=== PATIENT | female | born 1995 | race Hispanic/Latino ===

== ENCOUNTER 2019-09-08 18:01 | Emergency (ER) | payer MEDICAID ==
[2019-09-08 19:36] VITALS: BP 124/64
--- NOTE | 2019-09-08 19:37 | Event Note ---
ED Screening Note Date of service: 09/08/19 Time: 19:35 ED Screening Note: Pt complains of vaginal bleeding x yesterday 7 weeks denies urinary symptoms mild cramping abdominal pain +back pain This initial assessment/diagnostic orders/clinical plan/treatment(s) is/are subject to change based on patients health status, clinical progression and re- assessment by fellow clinical providers in the ED. Further treatment and workup at subsequent clinical providers discretion. Patient/guardian urged not to elope from the ED as their condition may be serious if not clinically assessed and managed. Initial orders include: US labs
[2019-09-08 20:14] LABS: Hematocrit 39.6 % (30.3-42.9); Mean Corpuscular HGB Conc 33 % (30-34); Mean Corpuscular Volume 89 fl (79-97); Platelet Count 234 K/mm3 (140-440); Red Blood Count 4.43 M/mm3 (3.65-5.03); Red Cell Distribution Width 13.5 % (13.2-15.2)
[2019-09-08 20:25] LABS: BUN/Creatinine Ratio 8; Blood Urea Nitrogen 4 mg/dL (7-17); Calcium 9.3 mg/dL (8.4-10.2); Hemolysis Index 5
[2019-09-08 20:25] LABS: Bacteria,Urine 1+ /HPF (Negative); Bilirubin,Urine NEG (Negative); Blood,Urine MOD (Negative); Color,Urine Yellow (Yellow); Mucus,Urine FEW /HPF; Protein,Urine <15 mg/dL mg/dL (Negative); Urobilinogen,Urine < 2.0 mg/dL (<2.0)
--- NOTE | 2019-09-09 03:03 | Emergency Department Report ---
ED Female HPI - General Chief complaint: Vaginal Bleeding Stated complaint: 7WKS /BLEEDING Time Seen by Provider: 09/08/19 19:35 Source: patient Mode of arrival: Ambulatory Limitations: No Limitations - History of Present Illness Initial comments: presents to ER with vaginal bleeding, 7 weeks ga, mild abd cramping, mild n/v. no fever, chills or night sweats. Complaint: vaginal bleeding -: days(s) (2) - Related Data Allergies Allergy/AdvReac Type Severity Reaction Status Date / Time No Known Allergies Allergy Unverified 09/08/19 18:06 ED Review of Systems ROS: Stated complaint: 7WKS /BLEEDING Other details as noted in HPI Comment: All other systems reviewed and negative Gastrointestinal: abdominal pain, nausea, vomiting Genitourinary: other (vag bleeding) ED Past Medical Hx - Past Medical History Previous Medical History?: No - Surgical History Past Surgical History?: No - Social History Smoking Status: Current Every Day Smoker ED Physical Exam - General Limitations: No Limitations General appearance: alert, in no apparent distress - Head Head exam: Present: atraumatic, normocephalic - Eye Eye exam: Present: normal appearance, PERRL, EOMI Pupils: Present: normal accommodation - ENT ENT exam: Present: normal exam - Neck Neck exam: Present: normal inspection - Respiratory Respiratory exam: Present: normal lung sounds bilaterally - Cardiovascular Cardiovascular Exam: Present: regular rate, normal rhythm - GI/Abdominal GI/Abdominal exam: Present: soft, normal bowel sounds - Speculum exam: Present: vaginal bleeding (mild) - Extremities Exam Extremities exam: Present: normal inspection - Back Exam Back exam: Present: normal inspection ED Course Vital Signs 09/08/19 19:33 Temperature 98.7 F Pulse Rate 87 Respiratory 17 Rate Blood Pressure 124/64 O2 Sat by Pulse 100 Oximetry ED Medical Decision Making - Lab Data Result diagrams: 09/08/19 19:51 09/08/19 19:51 Critical care attestation.: If time is entered above; I have spent that time in minutes in the direct care of this critically ill patient, excluding procedure time. ED Disposition Clinical Impression: Bleeding in early Disposition: DC-01 TO HOME OR SELFCARE Is pt being admited?: No Does the pt Need Aspirin: No Condition: Stable Instructions: Threatened Miscarriage (ED), (ED) Referrals: PRIMARY CARE, [Primary Care Provider] - 3-5 Days
--- NOTE | 2019-09-09 03:13 | Ultrasound Report ---
ULTRASOUND OBSTETRIC INDICATION / CLINICAL INFORMATION: vaginal bleeding. Clinical Gestational Age (GA): Unknown TECHNIQUE: Transabdominal. Transvaginal COMPARISON: None available. FINDINGS: There is no gestational sac/IUP identified within the uterus. Endometrium is slightly heterogeneous i n appearance with a 9 mm thickness. Both ovaries are well-visualized and appear unremarkable. No adne xal mass. No free fluid. IMPRESSION: 1. No evidence of gestational sac/IUP. 2. Mildly prominent and heterogeneous endometrium. 3. Both ovaries are well-visualized and appear unremarkable. Signer Name: Emiliana Edge MD Signed: 09/09/2019 3:09 AM Workstation Name: [id number]
--- NOTE | 2019-09-09 03:14 | Ultrasound Report ---
Please see separately dictated report for transvaginal OB ultrasound, which includes a combined repor t for transvaginal and transabdominal OB ultrasound. Signer Name: Emiliana Edge MD Signed: 09/09/2019 3:10 AM Workstation Name: [employer] [facility] [id number]
== END 2019-09-09 04:09 | disposition home or self-care (01) ==
LOC: ED 18:01
DX: O20.9 Hemorrhage in early pregnancy, unspecified (principal); O26.891 Other specified pregnancy related conditions, first trimester; M54.5 Low back pain; Z3A.01 Less than 8 weeks gestation of pregnancy
CPT/HCPCS: 36415; 76801; 76817; 80048; 81001; 84702; 84703; 85027; 86850; 86900; 86901